=== PATIENT | male | born 2000 | race Two or more races ===

== ENCOUNTER 2024-12-29 13:03 | Emergency (ER) | payer OTHER, SELFPAY ==
[2024-12-29 13:18] VITALS: BP 136/81; PULSE 82; RESP 16; TEMP 36.5; O2SAT 100
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
== END 2024-12-29 14:00 | disposition home or self-care (01) ==
DX: S06.0XAA Concussion with loss of consciousness status unknown, initial encounter (principal); V19.9XXA Pedal cyclist (driver) (passenger) injured in unspecified traffic accident, initial encounter
CPT/HCPCS: 99203; G0463

== ENCOUNTER 2025-01-07 10:39 | Emergency (ER) | payer OTHER, SELFPAY ==
[2025-01-07 10:49] VITALS: BP 130/89; PULSE 86; RESP 16; TEMP 36.6; O2SAT 100
--- NOTE | 2025-01-07 10:55 | ED.EAR ---
HPI - Ear Problem General Chief complaint: Ear Stated complaint: L EARACHE Time Seen by Provider: 01/07/25 10:55 Source: patient Mode of arrival: ambulatory Limitations: no limitations History of Present Illness HPI Narrative: 24 y/o male presented for c/o left ear pain x10 days. Endorses ear drainage. Has used Debrox and was able to remove some ear wax but denies decrease in the pain. Denies tinnitus, dizziness, n/v/d/f/c. Complaint: ear pain Related Data Allergies Allergy/AdvReac Type Severity Reaction Status Date / Time No Known Allergies Allergy Verified 01/07/25 10:50 Review of Systems Review of Systems: CONSTITUTIONAL: Denies malaise, chills, or fever. EYES: Denies visual changes, redness, or discharge. ENT: Denies rhinorrhea, congestion, sinus pain, and sore throat. Reports ear pain CARDIOVASCULAR: Denies chest pain, palpitations, or edema. RESPIRATORY: Denies cough or dyspnea. GASTROINTESTINAL: Denies abdominal pain, nausea, vomiting, diarrhea SKIN: Denies rash or itching. MUSCULOSKELETAL: Denies myalgia. NEUROLOGIC: Denies headache. All systems reviewed & are unremarkable except as noted in HPI and below PMFSH Comments At time of signature, agree with nursing past medical, surgical, social and family history. There is no relevant family history pertinent to the presenting complaint Exam Narrative: GENERAL: Well-appearing EYES: PERRLA, conjunctivae clear ENT: Nares clear. Mucous membranes moist. Left TM unable to visualize due to canal swelling and purulent drainage, no tragal tenderness. Right TM unable to visualize due to excess cerumen. Oropharynx not erythematous without lesions. . NECK: Supple. No lymphadenopathy CHEST: Clear to auscultation, breath sounds equal. HEART: Regular rate and rhythm. No murmur heard. SKIN: Warm, dry, no rash. NEURO: Alert and oriented x3. PSYCH: Normal mood and affect Course Course Emergency Course: Patient is aware of diagnosis, understands and agrees to treatment plan. Anticipatory guidance given. Patient agrees to follow-up as directed and is aware of reasons to seek care at the emergency department. Portions of this record may have been created with voice recognition software Level of Care: Express Care Visit Vital Signs Vital signs: Vital Signs Temperature 98 F 01/07/25 10:49 Pulse Rate 86 01/07/25 10:49 Respiratory Rate 16 01/07/25 10:49 Blood Pressure 130/89 01/07/25 10:49 Pulse Oximetry 100 01/07/25 10:49 Temperature 98 F 01/07/25 10:49 Pulse Rate 86 01/07/25 10:49 Respiratory Rate 16 01/07/25 10:49 Blood Pressure 130/89 01/07/25 10:49 Pulse Oximetry 100 01/07/25 10:49 Reviewed Medical Decision Making MDM Narrative Medical decision making narrative: Discussed physical exam findings consistent with left otitis externa. Reviewed prescription. Advised supportive measures and signs/symptoms to go to the ER. Patient is appropriate for outpatient treatment and follow-up. Differential Diagnosis Differential Diagnosis: Coronavirus, strep pharyngitis, allergic rhinitis, upper respiratory tract infection, sinusitis, rhinosinusitis, nasopharyngitis, viral pharyngitis, otitis media, otitis externa, eustachian tube dysfunction, foreign body, cerumen impaction. Vital Signs Vital Signs: Vital Signs Temperature 98 F 01/07/25 10:49 Pulse Rate 86 01/07/25 10:49 Respiratory Rate 16 01/07/25 10:49 Blood Pressure 130/89 01/07/25 10:49 Pulse Oximetry 100 01/07/25 10:49 Temperature 98 F 01/07/25 10:49 Pulse Rate 86 01/07/25 10:49 Respiratory Rate 16 01/07/25 10:49 Blood Pressure 130/89 01/07/25 10:49 Pulse Oximetry 100 01/07/25 10:49 Discharge Plan Discharge Clinical Impression: Otitis externa Patient Disposition: Home Condition: Stable Instructions: Antibiotic Form, Swimmer's Ear (ED) Additional Instructions: Swimmer's ear is an infection in the outer ear canal, which runs from your eardrum to the outside of your head. It's often caused by water that remains in your ear, creating a moist environment that encourages the growth of bacteria. Take antibiotic drops as directed. Tylenol and ibuprofen every 8 hours as needed to reduce fever, pain Avoid water or anything into the ear for one week Follow up with your personal physician for further evaluation and treatment within 3-5days. If your symptoms persist, change or worsen significantly, go to the emergency department for further evaluation. Patient Language: Serbian Prescriptions: New ciprofloxacin-dexamethasone 0.3-0.1 % drops,suspension 4 drp LEFT EAR Q12H 7 Days Qty: 7.5 0RF Follow-up/Referrals: PHYSICIAN,RUBBER EXTRUSION MACHINE OPERATOR [Primary Care Provider, Internal Medicine] Time of Disposition: 11:02
== END 2025-01-07 11:08 | disposition home or self-care (01) ==
PROVIDERS: Emergency Provider Nurse Practitioner Family
DX: H60.92 Unspecified otitis externa, left ear (principal)
CPT/HCPCS: 99213; G0463